=== PATIENT | female | born 1940 | race Caucasian/White ===

== ENCOUNTER → 2016-12-30 | Outpatient (CLI) | payer OTHER | LOC: FIMAGING 13:25 | DX: Z12.31 Encounter for screening mammogram for malignant neoplasm of breast (principal) | CPT/HCPCS: G0202 ==

== ENCOUNTER → 2017-01-08 | Outpatient (CLI) | payer OTHER | LOC: FIMAGING 10:12 | PROVIDERS: ATTEND Physician Assistant | DX: Z12.39 Encounter for other screening for malignant neoplasm of breast (principal); N63 Unspecified lump in breast | CPT/HCPCS: 76641; G0206 ==

== ENCOUNTER → 2017-04-16 | Outpatient (CLI) | payer OTHER | LOC: FIMAGING 10:10 | PROVIDERS: ATTEND Physical Medicine & Rehabilitation | DX: M25.572 Pain in left ankle and joints of left foot (principal); M77.52 Other enthesopathy of left foot and ankle ==

== ENCOUNTER → 2017-06-15 | Outpatient (CLI) | payer OTHER | LOC: FIMAGING 11:08 | PROVIDERS: ATTEND Physician Assistant | DX: N60.01 Solitary cyst of right breast (principal) ==

== ENCOUNTER → 2017-06-17 | Outpatient (CLI) | payer OTHER ==
[~2017-06-17] MED LIST: BUPIVACAINE 0.5% 10 ML SDV ONE; LIDO/EPI 1% **Not for Epidural 20 ML MDV ONE; LIDOCAINE 1% 300 MG/30 ML SDV ONE
== END ==
LOC: FIMAGING 07:04
PROVIDERS: ATTEND Physician Assistant
PROC: 0H9T3ZZ Drainage of Right Breast, Percutaneous Approach (ICD-10-PCS; principal; 2017-06-17)
DX: N60.01 Solitary cyst of right breast (principal)

== ENCOUNTER → 2018-07-08 | Outpatient (CLI) | payer OTHER | LOC: FIMAGING 08:52 | PROVIDERS: ATTEND Physician Assistant | DX: Z12.31 Encounter for screening mammogram for malignant neoplasm of breast (principal) ==

== ENCOUNTER → 2018-11-15 | Outpatient (CLI) | payer OTHER | LOC: FIMAGING 09:49 | PROVIDERS: ATTEND Orthopaedic Surgery | DX: M17.11 Unilateral primary osteoarthritis, right knee (principal); M16.11 Unilateral primary osteoarthritis, right hip ==

== ENCOUNTER 2018-12-01 06:59 | Observation (INO) | payer OTHER ==
--- NOTE | 2018-12-01 06:16 | PDHPUP ---
History & Physical Update H&P update statement: This history and physical update is based on an assessment of the patient which was completed after admission or registration (within 24 hours), but prior to the surgery/procedure. H&P update: H&P reviewed & patient examined, no change in patient's condition since H&P completed
[2018-12-01] MEDS ORDERED: FAMOTIDINE 20 MG TAB PO ONE (07:15)
[2018-12-01] MEDS ORDERED: ceFAZolin 2 GM/DEXTROSE 100 ML IV ONE (07:15)
[2018-12-01] MEDS ORDERED: DEXAMETHASONE 4 MG/ML VIAL IVP ONE (07:15)
[2018-12-01] MEDS ORDERED: ACETAMINOPHEN 325 MG TAB PO ONE (07:15)
[2018-12-01] MEDS ORDERED: LR 1,000 ML IV ONE (07:17)
[2018-12-01] MEDS ORDERED: TRANEXAMIC ACID 3,000 MG/50 ML BAG IRR ONE (07:38)
[2018-12-01] MEDS ORDERED: VANCOMYCIN 1 GM VIAL ONE (07:38)
[2018-12-01] MEDS ORDERED: ROPIVACAINE HCL 100 MG/20 ML INJ ONE (07:54)
[2018-12-01] MEDS ORDERED: BUPIVACAINE/DEXTROSE 7.5MG/ML 2 ML SPINAL AMP SP ONE (07:57)
[2018-12-01] MEDS ORDERED: PROPOFOL/EMULSION 500 MG/50 ML BOTTLE IV ONE ×2 (07:57)
[2018-12-01] MEDS ORDERED: NALOXONE HCL 0.4 MG/ML INJ IVP PRN (08:04)
[2018-12-01] MEDS ORDERED: HYDROmorphONE/DILAUDID 2 MG/ML INJ IVP PRN (08:04)
[2018-12-01] MEDS ORDERED: oxyCODONE IR 5 MG TAB PO PRN ×2 (08:04→10:35)
[2018-12-01] MEDS ORDERED: fentaNYL 100 MCG/2 ML INJ IVP PRN (08:04)
[2018-12-01] MEDS ORDERED: PHENYLEPHRINE HCL 100 MCG/ML SYR IVP PRN (08:04)
[2018-12-01] MEDS ORDERED: METOCLOPRAMIDE 10 MG/2 ML VIAL IVP PRN ×2 (08:04→10:35)
[2018-12-01] MEDS ORDERED: MIDAZOLAM 2 MG/2 ML VIAL IVP ONE (08:04)
[2018-12-01] MEDS ORDERED: MEPERIDINE 25 MG/0.5 ML AMP IVP PRN (08:04)
[2018-12-01] MEDS ORDERED: ONDANSETRON 4 MG/2 ML VIAL IVP PRN ×2 (08:04→10:35)
[2018-12-01] MEDS ORDERED: LR 500 ML IV PRN (08:04)
[2018-12-01] MEDS ORDERED: PROMETHAZINE HCL 25 MG/ML INJ IVP PRN ×2 (08:04→10:35)
--- NOTE | 2018-12-01 08:56 | PDANEPAE ---
ANE Past Medical History - Cardiovascular History Hx Hypertension: Yes Hx Arrhythmias: No Hx Chest Pain: No Hx Coronary Artery / Peripheral Vascular Disease: No Hx CHF / Valvular Disease: No Hx Palpitations: No - Pulmonary History Hx COPD: No Hx Asthma/Reactive Airway Disease: No Hx Recent Upper Respiratory Infection: No Hx Oxygen in Use at Home: No Hx Sleep Apnea: No Sleep Apnea Screening Result - Last Documented: Negative Pulmonary History Comment: hx of bronchitis as child - Neurologic History Hx Cerebrovascular Accident: No Hx Seizures: No Hx Dementia: No - Endocrine History Hx Diabetes: No - Renal History Hx Renal Disorders: No - Liver History Hx Hepatic Disorders: No - Neurological & Psychiatric Hx Hx Neurological and Psychiatric Disorders: No - Cancer History Hx Cancer: No - Congenital Disorder History Hx Congenital Disorders: No - GI History Hx Gastrointestinal Disorders: Yes Gastrointestinal History Comment: acid reflux - Other Health History Other Health History: none - Chronic Pain History Chronic Pain: Yes (bilat knees,lower back) - Surgical History Prior Surgeries: none in last 5 yrs. rotator cuff 2005. meniscus repairs ANE Review of Systems Review of Systems: - Exercise capacity METS (RN): 5 METS ANE Patient History - Allergies Allergies/Adverse Reactions: clarithromycin [From Biaxin] Allergy (Verified 11/01/18 13:18) Unknown - Home Medications Home Medications: Allopurinol [Allopurinol 300 MG (RX)] 300 mg PO DAILY 11/01/18 [Last Taken 1 Week Ago ~11/24/18] Ibuprofen [Motrin (*)] 200 mg PO DAILY PRN 11/01/18 [Last Taken 1 Week Ago ~] Indomethacin [Indocin 25 mg (*)] 50 mg PO DAILY PRN 11/01/18 [Last Taken 2 Weeks Ago ~11/17/18] Nebivolol HCl [Bystolic] 0.625 mg PO DAILY 11/01/18 [Last Taken 12/01/18] Propylene Glycol/Peg 400/Pf [Systane 0.3-0.4% Eye Drops] 1 each OP DAILY PRN [Last Taken 1 Week Ago ~11/24/18] Triamterene/Hydrochlorothiazid [Triamterene-Hctz 37.5-25 mg Tb] 0.25 tab PO DAILY 11/01/18 [Last Taken 1 Week Ago ~11/24/18] traZODone [traZODONE 50MG (*)] 100 mg PO HS PRN 11/01/18 [Last Taken 11/30/18] - NPO status NPO Since - Liquids (Date): 12/01/18 NPO Since - Liquids (Time): 03:30 NPO Since - Solids (Date): 11/30/18 NPO Since - Solids (Time): 22:00 - Smoking Hx Smoking Status: Never smoked - Family Anes Hx Family Hx Anesthesia Complications: none ANE Labs/Vital Signs - Vital Signs Blood Pressure: 161/86 Heart Rate: 65 Respiratory Rate: 14 O2 Sat (%): 95 Height: 160.02 cm Weight: 76.204 kg ANE Physical Exam - Airway Neck exam: FROM Mallampati Score: Class 2 - Pulmonary Pulmonary: no respiratory distress, no rales or rhonchi, clear to auscultation - Cardiovascular Cardiovascular: regular rate and rhythym, no murmur, rub, or gallop, systolic murmur - ASA Status ASA Status: II ANE Anesthesia Plan Anesthesia Plan: spinal
[2018-12-01] MEDS ORDERED: TRANEXAMIC ACID 3,000 MG in NS (SYRINGE) 50 ML IRR ONE (09:00)
[2018-12-01] MEDS ORDERED: ROPIVACAINE 0.2% 80 MG, EPINEPHrine 0.2 MG, KETOROLAC TROMETHAMINE 30 MG in SYRINGE 0 ML IU ONE (09:00)
--- NOTE | 2018-12-01 09:33 | POSTANESTH ---
Post Anesthetic Evaluation Cardiovascular Status: Normal, Stable Respiratory Status: Normal, Stable Level of Consciousness/Mental Status: Can Participate in Eval Pain Control: Adequate, Prn Tx Ordered Nausea/Vomiting Control: Adequate, Prn Tx Ordered Complications Possibly Related to Anesthesia: None Noted
[2018-12-01] MEDS ORDERED: ePHEDrine SULFATE 25 MG/5 ML SYR ONE (09:42)
[2018-12-01] MEDS ORDERED: PHENYLEPHRINE HCL 100 MCG/ML SYR ONE ×2 (09:54→10:25)
[2018-12-01] MEDS ORDERED: diphenhydrAMINE 25 MG CAP PO PRN (10:35)
[2018-12-01] MEDS ORDERED: BISACODYL 10 MG SUPP PR PRN (10:35)
[2018-12-01] MEDS ORDERED: LACTULOSE 20 GM/30 ML UDCUP PO PRN (10:35)
[2018-12-01] MEDS ORDERED: CYCLOBENZAPRINE 10 MG TAB PO PRN (10:35)
[2018-12-01] MEDS ORDERED: PROMETHAZINE HCL 25 MG SUPPR PR PRN (10:35)
[2018-12-01] MEDS ORDERED: ONDANSETRON DISINTEGRATING 4 MG TAB PO PRN (10:35)
[2018-12-01] MEDS ORDERED: POLYETHYLENE GLYCOL 3350 17 GM PKT PO PRN (10:35)
[2018-12-01] MEDS ORDERED: TEMAZEPAM 15 MG CAP PO PRN (10:35)
[2018-12-01] MEDS ORDERED: DIPHENOXYLATE/ATROPINE LOMOTIL 1 TAB PO PRN (10:35)
[2018-12-01] MEDS ORDERED: MAGNESIUM HYDROXIDE 30 ML UDCUP PO PRN (10:35)
--- NOTE | 2018-12-01 10:35 | POSTOPPROG ---
Post Op Note Date of Operation: 12/01/18 Surgeon: Giovana Costello Plate Conditioner: Zainab Costello and Mini Clement PA-C Anesthesiologist: Dr. Delgado Anesthesia: Spinal, Other (Specify) (adductor canal block) Pre-op Diagnosis: right knee OA Post-op Diagnosis: same Indication: right knee pain Procedure: right medial PKA Findings: severe OA of medial aspect of right knee Inf/Abcess present in the surg proc area at time of surgery?: No EBL: 50-100
[2018-12-01] MEDS ORDERED: traZODone 50 MG TAB PO PRN (10:37)
[2018-12-01] MEDS ORDERED: Propylene Glycol/Peg 400/Pf [Systane 0.3-0.4% Eye Drop] 1 EACH EACHEYE PRN (10:37)
[2018-12-01] MEDS ORDERED: LR 1,000 ML IV SCH (11:00)
[2018-12-01] MEDS: ACETAMINOPHEN 325 MG TAB PO SCH ×2 (13:06→17:59)
[2018-12-01] MEDS: ceFAZolin 2 GM/DEXTROSE 100 ML IV SCH (17:58)
[2018-12-01] MEDS: SENNOSIDES/DOCUSATE SODIUM TAB PO SCH (20:19)
[2018-12-01] MEDS: FAMOTIDINE 20 MG TAB PO SCH (20:19)
[2018-12-01] MEDS: ASPIRIN 81 MG CHEWABLE TAB PO SCH (20:20)
[2018-12-02] MEDS: ceFAZolin 2 GM/DEXTROSE 100 ML IV SCH (00:01)
[2018-12-02] MEDS: ACETAMINOPHEN 325 MG TAB PO SCH ×3 (00:03→12:04)
[2018-12-02 07:35] VITALS: BP 154/84
[2018-12-02] MEDS: ASPIRIN 81 MG CHEWABLE TAB PO SCH (08:53)
[2018-12-02] MEDS: SENNOSIDES/DOCUSATE SODIUM TAB PO SCH (08:53)
[2018-12-02] MEDS: FAMOTIDINE 20 MG TAB PO SCH (08:54)
[2018-12-02] MEDS ORDERED: NEBIVOLOL HCL PO SCH (09:00)
[2018-12-02] MEDS ORDERED: TRIAMTERENE/HCTZ 37.5/25 1 EACH TAB PO SCH (09:00)
--- NOTE | 2018-12-02 12:39 | ASMTLACE ---
LACE Length of stay for Answers: 2 days current admission Acuity / Level of Answers: No Care: Did the patient have an inpatient admission? Comorbidities - select Answers: Opioid dependence all that apply / Chronic pain Other Notes: HTN # of Emergency department Answers: 0 visits in the last 6 months Score: 7 Date Signed: 12/02/2018 12:38 PM Electronically Signed By:PETER Gillespie
--- NOTE | 2018-12-02 13:28 | SOAPPROG ---
SOAP Progress Note Assessment/Plan: Assessment: Patient is doing well POD 1 s/p right medial PKA Pain management: pain is well controlled on oral pain meds. VTE ppx: recommend 81 mg aspirin morning and evening for 4 weeks, cont MERVIN and SCDs Anemia: level is expected initially postop. Asymptomatic. Continue to monitor D/c planning:patient has done much better than anticipated. Patient is stable, BP stable, pain well controlled and patient is eager for discharge to home. March d/c to home today pending release from PT Plan: 12/02/18 13:27 Subjective: No nausea, vomiting, chest pain, shortness of breath. Pain well-controlled. Objective: Vital Signs Temp Pulse Resp BP Pulse Ox 36.5 C 62 16 154/84 H 95 12/02/18 07:30 12/02/18 07:30 12/02/18 07:30 12/02/18 07:30 12/02/18 07:30 Laboratory Results 12/02/18 04:32 12/01/18 12/02/18 12/03/18 05:59 05:59 05:59 Intake Total 1800 Output Total 880 100 Balance 920 -100 RLE:incision dressing clean and dry, NVI, positive PF/DF ICD10 Worksheet Patient Problems: Problems Problem Status Onset Primary localized osteoarthritis of right knee Acute
--- NOTE | 2018-12-02 18:47 | GOP ---
[f rep st] OPERATIVE REPORT DATE OF OPERATION: 12/01/2018 SURGEON: Emelia Costello MD CABLE INSTALLER REPAIRER: MONALISA Cintron ANESTHESIA: Spinal. PREOPERATIVE DIAGNOSIS: Right knee osteoarthritis. POSTOPERATIVE DIAGNOSIS: Right knee osteoarthritis. PROCEDURE PERFORMED: right knee medial partial replacement with computer navigation robotic assist. FINDINGS: ESTIMATED BLOOD LOSS: 30 mL. INDICATIONS: Patient is a 78-year-old female with progressive pain of the right knee, unresponsive to conservative care. Risks and benefits of surgical intervention were explained in detail. DESCRIPTION OF PROCEDURE: The patient was brought to the operating room and placed on the table in supine position. Spinal anesthesia was induced without difficulty. A pneumatic tourniquet was applied about the right proximal thigh and the leg was prepped and draped in sterile fashion. Attention was turned first to the distal aspect of the right femur. At 3 cm proximal to the lateral rise of the femur, 2 percutaneous half pins were placed for fixation of the femoral array. In a similar fashion, 2 pins were placed anterolateral on the tibia for fixation of the tibial array. External land marking and registration of the hip center was performed without difficulty. After exsanguination by elevation, the tourniquet was inflated to 250 mmHg. Incision was made from the tibial tuberosity to the superior pole of the patella. Dissection was carried out through the subcutaneous tissue to the deep fascia using Bovie electrocautery for hemostasis. Medial parapatellar arthrotomy was carried out to the superior pole of the patella. The medial collateral ligament was elevated and the infrapatellar fat pad was resected. Internal femoral and tibial registration was carried out without difficulty and the femoral and tibial checkpoints were placed and verified for accuracy. Attention was turned to the femur. The foot print for the size 4 femoral component was cut with the 6 mm bur using the [place] robotic system and verified for accuracy against the CT based plan. The hole was cut for the femoral post. In a similar fashion, the 6 mm bur was used to cut the foot print for the size 4 tibial component using the [place] system and verified for accuracy against the CT based plan. Attention was turned to the posterior aspect of the knee and remnants of the medial meniscus were excised. The posterior capsule was injected with ropivacaine, epinephrine and Toradol. Trial reduction was carried out and there was excellent range of motion, alignment and stability using the size 4 femoral component and the size 4 tibial component. All trials were then removed. The joint was thoroughly irrigated and carefully dried. One package of cement and 1 gram of vancomycin were mixed in the vacuum mixer and placed on the fixation surfaces of all components. The components were implanted and all excess cement was thoroughly removed. Implant placement was verified against the CT view plan and found to be excellent. The tourniquet was deflated and all bleeders were coagulated. The wound was thoroughly irrigated and closed using interrupted sutures of 2-0 Vicryl for the joint capsule. The subcu was closed with 3-0 Vicryl and the skin with 4-0 Monocryl. Dermabond and Steri-Strips were applied, followed by a compressive dressing. The patient was then moved from the operating room to the recovery room in good condition, having tolerated the procedure well. IMPLANTS: Size 4 femur, size 4 tibia, 4 x 8 mm polyethylene. CASE CLASSIFICATION: Clean. /[id number]/MODL MTDD
== END 2018-12-02 12:21 | disposition home or self-care (01) ==
LOC: F3N 06:59 → F3E 08:04 → F3N 08:06
PROVIDERS: ADMIT Orthopaedic Surgery; ATTEND Orthopaedic Surgery
DX: M17.11 Unilateral primary osteoarthritis, right knee (principal); M54.5 Low back pain
CPT/HCPCS: 27446; 73560; 97110; 97116; 97161; C1713; C1776; G0378; J0171; J0690; J1100; J1885; J2250; J2370; J2704; J2795; J3370

== ENCOUNTER 2019-01-07 09:14 | Observation (INO) | payer OTHER ==
[2019-01-26] MEDS ORDERED: TRANEXAMIC ACID 3,000 MG in NS (SYRINGE) 50 ML IRR ONE (06:00)
[2019-01-26] MEDS ORDERED: ceFAZolin 2 GM/DEXTROSE 100 ML IV ONE ×2 (06:00→10:30)
[2019-01-26] MEDS ORDERED: ROPIVACAINE 0.2% 80 MG, EPINEPHrine 0.2 MG, KETOROLAC TROMETHAMINE 30 MG in SYRINGE 0 ML IU ONE (06:00)
[2019-01-26] MEDS ORDERED: PROPOFOL/EMULSION 500 MG/50 ML BOTTLE IV ONE ×2 (07:55→11:57)
[2019-01-26] MEDS ORDERED: fentaNYL 100 MCG/2 ML INJ ONE (07:55)
[2019-01-26] MEDS ORDERED: ONDANSETRON 4 MG/2 ML VIAL ONE (07:55)
[2019-01-26] MEDS ORDERED: LIDOCAINE 2% 100 MG/5 ML SYR ONE (07:55)
[2019-01-26] MEDS ORDERED: VANCOMYCIN 1 GM VIAL ONE (08:10)
[2019-01-26] MEDS ORDERED: TRANEXAMIC ACID 3,000 MG/50 ML BAG IRR ONE (08:10)
[2019-01-26] MEDS ORDERED: FAMOTIDINE 20 MG TAB PO ONE (09:08)
[2019-01-26] MEDS ORDERED: ACETAMINOPHEN 325 MG TAB PO ONE (09:08)
[2019-01-26] MEDS ORDERED: DEXAMETHASONE 4 MG/ML VIAL IVP ONE (09:08)
[2019-01-26] MEDS ORDERED: LR 1,000 ML IV ONE (10:14)
[2019-01-26] MEDS ORDERED: LIDOCAINE 1% 2 ML INJ ID PRN (10:14)
[2019-01-26] MEDS ORDERED: BUPIVACAINE 0.25% 30 ML SDV ONE (11:11)
--- NOTE | 2019-01-26 11:54 | PDANEPAE ---
ANE History of Present Illness left knee pain, here for L knee resurfacing ANE Past Medical History - Cardiovascular History Hx Hypertension: Yes Hx Arrhythmias: No Hx Chest Pain: No Hx Coronary Artery / Peripheral Vascular Disease: No Hx CHF / Valvular Disease: No Hx Palpitations: No - Pulmonary History Hx COPD: No Hx Asthma/Reactive Airway Disease: No Hx Recent Upper Respiratory Infection: No Hx Oxygen in Use at Home: No Hx Sleep Apnea: No Sleep Apnea Screening Result - Last Documented: Negative Pulmonary History Comment: hx of bronchitis as child - Neurologic History Hx Cerebrovascular Accident: No Hx Seizures: No Hx Dementia: No - Endocrine History Hx Diabetes: No - Renal History Hx Renal Disorders: No - Liver History Hx Hepatic Disorders: No - Neurological & Psychiatric Hx Hx Neurological and Psychiatric Disorders: No - Cancer History Hx Cancer: No - Congenital Disorder History Hx Congenital Disorders: No - GI History Hx Gastrointestinal Disorders: Yes Gastrointestinal History Comment: acid reflux - Other Health History Other Health History: none - Chronic Pain History Chronic Pain: Yes (bilat knees,lower back) - Surgical History Prior Surgeries: none in last 5 yrs. rotator cuff 2005. meniscus repairs ANE Review of Systems Review of Systems: - Exercise capacity METS (RN): 4 METS ANE Patient History - Allergies Allergies/Adverse Reactions: clarithromycin [From Biaxin] Allergy (Verified 01/07/19 15:52) Unknown - Home Medications Home Medications: Nebivolol HCl [Bystolic] 0.625 mg PO DAILY 11/01/18 [Last Taken 01/26/19 07:30] Propylene Glycol/Peg 400/Pf [Systane 0.3-0.4% Eye Drop] 1 each OP DAILY PRN [Last Taken 1 Week Ago ~11/24/18] Triamterene/Hydrochlorothiazid [Triamterene-Hctz 37.5-25 mg Tb] 0.25 tab PO DAILY 11/01/18 [Last Taken 01/25/19 08:00] traZODone [traZODONE 50MG (*)] 100 mg PO Q2D 11/01/18 [Last Taken 01/25/19 22:00 ] Acetamn/Diphenhydramine 500/25 [Tylenol PM (*)] 1 each PO Q2D 12/30/18 [Last Taken Unknown] Allopurinol [Allopurinol 300 MG (RX)] 300 mg PO DAILY 12/30/18 [Last Taken 01/19] Cholecalciferol Vit D3 [Vitamin D3 (*)] 5,000 units PO DAILY 12/30/18 [Last Taken 01/12/19] Cyclobenzaprine [Flexeril 10 MG (*)] 5 mg PO DAILY PRN 12/30/18 [Last Taken ] Herbals/Supplements -Info Only 1 ea PO DAILY 12/30/18 [Last Taken 01/12/19] Ibuprofen [Motrin (*)] 200 mg PO TID PRN 12/30/18 [Last Taken 01/19/19] Indomethacin 50 mg PO DAILY PRN 12/30/18 [Last Taken 01/19/19] Melatonin [Melatonin 3 MG (*)] 3 mg PO Q2D 12/30/18 [Last Taken Unknown] - NPO status NPO Since - Liquids (Date): 01/26/19 NPO Since - Liquids (Time): 05:40 NPO Since - Solids (Date): 01/25/19 NPO Since - Solids (Time): 21:00 - Smoking Hx Smoking Status: Never smoked - Family Anes Hx Family Hx Anesthesia Complications: none ANE Labs/Vital Signs - Vital Signs Blood Pressure: 137/82 Heart Rate: 63 Respiratory Rate: 16 O2 Sat (%): 95 Height: 160.02 cm Weight: 73.482 kg ANE Physical Exam - Airway Neck exam: FROM Mallampati Score: Class 2 Mouth exam: normal dental/mouth exam - Pulmonary Pulmonary: no respiratory distress, no rales or rhonchi - Cardiovascular Cardiovascular: regular rate and rhythym, no murmur, rub, or gallop - ASA Status ASA Status: II ANE Anesthesia Plan Anesthesia Plan: GA with mask, spinal Regional Anesthesia: single shot NB Total IV Anesthesia: Yes
[2019-01-26] MEDS ORDERED: diphenhydrAMINE 25 MG CAP PO PRN (12:28)
[2019-01-26] MEDS ORDERED: ONDANSETRON 4 MG/2 ML VIAL IVP PRN (12:28)
[2019-01-26] MEDS ORDERED: CYCLOBENZAPRINE 10 MG TAB PO PRN (12:28)
[2019-01-26] MEDS ORDERED: BISACODYL 10 MG SUPP PR PRN (12:28)
[2019-01-26] MEDS ORDERED: PROMETHAZINE HCL 25 MG/ML INJ IVP PRN (12:28)
[2019-01-26] MEDS ORDERED: PROMETHAZINE HCL 25 MG SUPPR PR PRN (12:28)
[2019-01-26] MEDS ORDERED: METOCLOPRAMIDE 10 MG/2 ML VIAL IVP PRN (12:28)
[2019-01-26] MEDS ORDERED: DIPHENOXYLATE/ATROPINE LOMOTIL 1 TAB PO PRN (12:28)
[2019-01-26] MEDS ORDERED: ONDANSETRON DISINTEGRATING 4 MG TAB PO PRN (12:28)
[2019-01-26] MEDS ORDERED: TEMAZEPAM 15 MG CAP PO PRN (12:28)
[2019-01-26] MEDS ORDERED: POLYETHYLENE GLYCOL 3350 17 GM PKT PO PRN (12:28)
[2019-01-26] MEDS ORDERED: oxyCODONE IR 5 MG TAB PO PRN (12:28)
[2019-01-26] MEDS ORDERED: MAGNESIUM HYDROXIDE 30 ML UDCUP PO PRN (12:28)
[2019-01-26] MEDS ORDERED: LACTULOSE 20 GM/30 ML UDCUP PO PRN (12:28)
--- NOTE | 2019-01-26 12:28 | POSTOPPROG ---
Post Op Note Date of Operation: 01/26/19 Surgeon: Giovana Costello Photographer Portrait: Mini Costello PAC Anesthesiologist: Dr. Nidia Reddy Anesthesia: Spinal, Other (Specify) (adductor canal block) Pre-op Diagnosis: left knee OA Post-op Diagnosis: same Indication: left knee pain Procedure: left medial PKA, robot assisted Findings: severe OA of left medial knee Inf/Abcess present in the surg proc area at time of surgery?: No EBL: 50-100
[2019-01-26] MEDS ORDERED: LR 1,000 ML IV SCH (12:30)
[2019-01-26] MEDS ORDERED: fentaNYL 100 MCG/2 ML INJ IVP PRN (12:32)
[2019-01-26] MEDS ORDERED: DIAZEPAM 5 MG/ML 1 ML SYR IVP PRN (12:32)
[2019-01-26] MEDS ORDERED: NALOXONE HCL 0.4 MG/ML INJ IVP PRN (12:32)
[2019-01-26] MEDS ORDERED: MEPERIDINE 25 MG/0.5 ML AMP IVP PRN (12:32)
[2019-01-26] MEDS ORDERED: PHENYLEPHRINE HCL 100 MCG/ML SYR IVP PRN (12:32)
[2019-01-26] MEDS: ACETAMINOPHEN 325 MG TAB PO SCH ×2 (18:28→23:54)
[2019-01-26] MEDS: ceFAZolin 2 GM/DEXTROSE 100 ML IV SCH (19:56)
[2019-01-26] MEDS: SENNOSIDES/DOCUSATE SODIUM TAB PO SCH (21:30)
[2019-01-26] MEDS: FAMOTIDINE 20 MG TAB PO SCH (21:31)
[2019-01-26] MEDS: ASPIRIN 81 MG CHEWABLE TAB PO SCH (21:31)
[2019-01-27] MEDS: ceFAZolin 2 GM/DEXTROSE 100 ML IV SCH (04:22)
[2019-01-27 04:24] VITALS: BP 147/76
[2019-01-27] MEDS: ACETAMINOPHEN 325 MG TAB PO SCH (05:41)
[2019-01-27] MEDS: SENNOSIDES/DOCUSATE SODIUM TAB PO SCH (08:15)
[2019-01-27] MEDS: ASPIRIN 81 MG CHEWABLE TAB PO SCH (08:15)
[2019-01-27] MEDS: FAMOTIDINE 20 MG TAB PO SCH (08:15)
[2019-01-27] MEDS ORDERED: TRIAMTERENE/HCTZ 37.5/25 1 EACH TAB PO SCH (09:00)
[2019-01-27] MEDS ORDERED: NEBIVOLOL PO SCH (09:00)
[2019-01-27] MEDS ORDERED: NEBIVOLOL HCL 5 MG TAB PO SCH (09:00)
--- NOTE | 2019-01-27 09:28 | SOAPPROG ---
SOAP Progress Note Assessment/Plan: Assessment: Patient is doing well POD 1 s/p L med PKA Pain management: pain is well controlled on oral pain meds. VTE ppx: recommend aspirin 81 mg BID for 4 weeks, cont MERVIN and SCDs Anemia: level is expected initially postop. Asymptomatic. Continue to monitor D/c planning: Patient has done better than anticipated and would like to be discharged to home today. Patient must be released from PT before discharge to home. Plan: 01/27/19 09:28 Subjective: patient is doing well today, denies SOB ,chest pain and n/v Objective: Vital Signs Temp Pulse Resp BP Pulse Ox 36.4 C 68 17 147/76 H 96 01/27/19 08:00 01/27/19 08:14 01/27/19 08:00 01/27/19 08:14 01/27/19 08:00 Laboratory Results 01/27/19 05:05 01/27/19 05:05 01/26/19 01/27/19 01/28/19 05:59 05:59 05:59 Intake Total 1100 Output Total 700 Balance 400 LLE: incision dressing is clean and dry, NVI, +pf/df ICD10 Worksheet Patient Problems: Problems Problem Status Onset Primary localized osteoarthritis of left knee Acute Primary localized osteoarthritis of right knee Acute
--- NOTE | 2019-01-27 09:29 | ASMTLACE ---
OSMAN Length of stay for Answers: 2 days current admission Acuity / Level of Answers: No Care: Did the patient have an inpatient admission? # of Emergency department Answers: 0 visits in the last 6 months Score: 2 Date Signed: 01/27/2019 09:29 AM Electronically Signed By:PETER Gillespie
--- NOTE | 2019-01-27 11:14 | GDS ---
[f rep st] DISCHARGE SUMMARY ADMISSION DIAGNOSIS: Left knee osteoarthritis. DISCHARGE DIAGNOSIS: Left knee osteoarthritis. PROCEDURE: Left partial knee arthroplasty, medial compartment, robot assisted. VTE PROPHYLAXIS: Recommended aspirin 81 mg twice daily for 4 weeks. BRIEF DESCRIPTION OF HOSPITAL STAY: Patient was admitted for an elective joint arthroplasty. The cynthia kelley tolerated the procedure well and has passed physical therapy. The patient was given appropriat e antibiotic prophylaxis and venous thromboembolism prophylaxis. The patient's pain was well control led on oral pain medication, patient was holding down food, and had urinated. Decision was made to d ischarge the patient. The patient was given post-operative prescriptions pre-operatively. PLAN: Followup scheduled in Dr. Costello's office with CYNTHIA Gunter, on 02/17 at 10 a.m. /[id number]/MODL
[2019-01-28] MEDS ORDERED: traZODone 50 MG TAB PO SCH (09:00)
--- NOTE | 2019-01-31 09:25 | GOP ---
[f rep st] OPERATIVE REPORT DATE OF OPERATION: 01/26/2019 SURGEON: Emelia Costello MD WINDLASSER: Pema Clement PA-C ANESTHESIA: Spinal. PREOPERATIVE DIAGNOSIS: Left knee osteoarthritis. POSTOPERATIVE DIAGNOSIS: Left knee osteoarthritis. PROCEDURE PERFORMED: Left medial compartment partial knee replacement with computer navigation and_robotic assist FINDINGS: ESTIMATED BLOOD LOSS: 30 mL. DESCRIPTION OF PROCEDURE: The patient was brought to the operating room and placed on the table in supine position. Spinal anesthesia was induced without difficulty. A pneumatic tourniquet was applied about the @@ proximal thigh and the leg was prepped and draped in sterile fashion. Attention was turned first to the distal aspect of the left femur. At 3 cm proximal to the lateral rise of the femur, 2 percutaneous half pins were placed for fixation of the femoral array. In a similar fashion, 2 pins were placed anterolateral on the tibia for fixation of the tibial array. External land marking and registration of the hip center was performed without difficulty. After exsanguination by elevation, the tourniquet was inflated to 250 mmHg. Incision was made from the tibial tuberosity to the superior pole of the patella. Dissection was carried out through the subcutaneous tissue to the deep fascia using Bovie electrocautery for hemostasis. Medial parapatellar arthrotomy was carried out to the superior pole of the patella. The medial collateral ligament was elevated and the infrapatellar fat pad was resected. Internal femoral and tibial registration was carried out without difficulty and the femoral and tibial checkpoints were placed and verified for accuracy. Attention was turned to the femur. The foot print for the size 4 femoral component was cut with the 6 mm bur using the [place] robotic system and verified for accuracy against the CT based plan. The hole was cut for the femoral post. In a similar fashion, the 6 mm bur was used to cut the foot print for the size 4 tibial component using the [employer] system and verified for accuracy against the CT based plan. Attention was turned to the posterior aspect of the knee and remnants of the medial meniscus were excised. The posterior capsule was injected with ropivacaine, epinephrine and Toradol. Trial reduction was carried out and there was excellent range of motion, alignment and stability using the size 4 femoral component and the size 4 tibial component. All trials were then removed. The joint was thoroughly irrigated and carefully dried. One package of cement and 1 gram of vancomycin were mixed in the vacuum mixer and placed on the fixation surfaces of all components. The components were implanted and all excess cement was thoroughly removed. Implant placement was verified against the CT view plan and found to be excellent. The tourniquet was deflated and all bleeders were coagulated. The wound was thoroughly irrigated and closed using interrupted sutures of 2-0 Vicryl for the joint capsule. The subcu was closed with 3-0 Vicryl and the skin with 4-0 Monocryl. Dermabond and Steri-Strips were applied, followed by a compressive dressing. The patient was then moved from the operating room to the recovery room in good condition, having tolerated the procedure well. This is a 78-year-old female with progressive pain of the left knee unresponsive to conservative care. Risks and benefits of surgical intervention were explained in detail. CASE CLASSIFICATION: Clean. /[id number]/MODL MTDD
== END 2019-01-27 11:21 | disposition home or self-care (01) ==
LOC: F3N 09:14 → UNDOADMOB 09:14 → F1N 01-26 09:01 → F3N 01-26 11:04
PROVIDERS: ADMIT Orthopaedic Surgery; ATTEND Orthopaedic Surgery
PROC: 0SRD0J9 Replacement of Left Knee Joint with Synthetic Substitute, Cemented, Open Approach (ICD-10-PCS; principal; 2019-01-26 11:00)
PROC: 8E0Y0CZ Robotic Assisted Procedure of Lower Extremity, Open Approach (ICD-10-PCS; principal; 2019-01-26 11:00)
DX: M17.12 Unilateral primary osteoarthritis, left knee (principal); M10.9 Gout, unspecified; I10 Essential (primary) hypertension; G43.909 Migraine, unspecified, not intractable, without status migrainosus
CPT/HCPCS: 27446; 73560; 97116; 97161; C1713; C1776; G0378; J0171; J0690; J1100; J1885; J2001; J2405; J2704; J2795; J3010; J3370

== ENCOUNTER → 2019-01-07 | Outpatient (CLI) | payer OTHER | LOC: FIMAGING 09:17 | PROVIDERS: ATTEND Orthopaedic Surgery | DX: Z01.818 Encounter for other preprocedural examination (principal); M17.12 Unilateral primary osteoarthritis, left knee ==